=== PATIENT | female | born 1940 | race Caucasian/White ===

== ENCOUNTER 2017-04-28 20:36 | Inpatient (IN) | payer OTHER ==
[~2017-04-28] VITALS: Ht 157.5 cm; Wt 59.3 kg
[2017-04-28] MEDS ORDERED: HYDR25TA PO (20:49)
[2017-04-28] MEDS ORDERED: LOSA50TA37 PO (20:49)
[2017-04-28] MEDS ORDERED: METOPROLOL TARTRATE 5 MG/5 ML VIAL IVP ONE (21:45)
[2017-04-28 21:48] LABS: BASOPHILS % (AUTO) 0.5 % (0.0-2.0); EOSINOPHILS % (AUTO) 0.3 % (1.0-6.0); HEMATOCRIT 37.8 % (36-46); HEMOGLOBIN 13.4 g/dL (12.0-16.0); LYMPHOCYTES # (AUTO) 2.2 K/uL (1.0-4.8); LYMPHOCYTES % (AUTO) 26.6 % (22.0-44.0); MEAN CORPUSCULAR HEMOGLOBIN 30.4 pg (26.0-34.0); MEAN CORPUSCULAR HGB CONC 35.3 G/dL (31.0-37.0); MEAN CORPUSCULAR VOLUME 86 fL (80-100); MONOCYTES # (AUTO) 0.5 K/uL (0.1-1.0); MONOCYTES % (AUTO) 6.6 % (2.0-9.0); NEUTROPHILS # (AUTO) 5.5 K/uL (1.8-7.7); PLATELET COUNT (AUTO) 614 K/uL (150-450); RED BLOOD CELL COUNT(AUTO) 4.39 MIL/uL (4.00-5.20); RED CELL DISTRIBUTION WIDTH 12.1 % (11.5-14.5)
[2017-04-28 21:50] LABS: APPEARANCE,URINE CLEAR (CLEAR); BILIRUBIN,URINE NEGATIVE (NEGATIVE); GLUCOSE, URINE (UA) NEGATIVE (NEGATIVE); KETONES,URINE NEGATIVE (NEGATIVE); LEUKOCYTE ESTERASE ,URINE NEGATIVE (NEGATIVE); NITRATE,URINE NEGATIVE (NEGATIVE); OCCULT BLOOD,URINE LARGE (NEGATIVE); PROTEIN,URINE NEGATIVE (NEGATIVE); UROBILINOGEN,URINE 0.2 mg/dL (<=1.0)
[2017-04-28 21:55] LABS: BACTERIA,URINE None Seen /HPF (None Seen); RBC,URINE 26-50 /HPF (0-2); SQUAMOUS EPITHELIAL CELL,UR Few /LPF (None Seen); WBC,URINE 0-2 /HPF (0-5)
[2017-04-28 21:59] LABS: ALANINE AMINOTRANSFERASE 23 U/L (12-78); ALBUMIN 4.1 g/dL (3.4-5.0); ALKALINE PHOSPHATASE 64 U/L (46-116); ANION GAP 11 mmol/L (8-16); ASPARTATE AMINOTRANSFERASE 28 U/L (15-37); CALCIUM, TOTAL 8.9 mg/dL (8.8-10.5); CARBON DIOXIDE 25 mmol/L (22-29); CHLORIDE 84 mmol/L (98-107); CREATININE 0.71 mg/dL (0.60-1.30); GLOMERULAR FILTR. RATE CALC > 60 mL/min (>60); GLUCOSE,RANDOM 153 mg/dL (70-110); LIPASE 112 U/L (73-393); TOTAL PROTEIN, SERUM 8.1 g/dL (6.4-8.2); UREA NITROGEN, BLOOD 9 mg/dL (7-18)
[2017-04-28 22:08] LABS: SODIUM SERUM 120 mmol/L (136-145)
[2017-04-28 22:09] LABS: POTASSIUM 2.7 mmol/L (3.5-5.1)
[2017-04-28] MEDS ORDERED: IOVERSOL 320 MG/ML 100 ML VIAL ONE (22:33)
[2017-04-28] MEDS ORDERED: POTASSIUM CHLORIDE 20 MEQ ER TABLET PO ONE (23:45)
[2017-04-29] MEDS ORDERED: ACETAMINOPHEN 325 MG TABLET PO PRN
[2017-04-29] MEDS ORDERED: ONDANSETRON HCL 4 MG/2 ML VIAL IVP PRN
[2017-04-29] MEDS ORDERED: LORazepam 0.5 MG TABLET PO ONE
[2017-04-29] MEDS ORDERED: 0.9% SODIUM CHLORIDE 10 ML SYRINGE IVP PRN
[2017-04-29 01:02] VITALS: BP 169/94
[2017-04-29] MEDS ORDERED: HYDROCODONE/ACETAMINOPHEN 5-325 MG TABLET PO PRN (03:00)
[2017-04-29 03:13] VITALS: BP 134/74
[2017-04-29] MEDS ORDERED: CARVEDILOL 6.25 MG TABLET PO ONE (03:15)
[2017-04-29] MEDS ORDERED: DEXTROSE 50%-WATER 25 GM/50 ML SYRINGE IVP PRN (03:15)
[2017-04-29] MEDS ORDERED: HydrALAZINE HCL 20 MG/ML VIAL IVP PRN (03:15)
[2017-04-29] MEDS ORDERED: POTASSIUM CHLORIDE 20 MEQ ER TABLET PO PRN (05:00)
[2017-04-29] MEDS ORDERED: POTASSIUM CHLORIDE 20 MEQ ER TABLET PO ONE (05:00)
[2017-04-29] MEDS ORDERED: POTASSIUM CHL 10 MEQ/WATER 50 ML IV PRN (05:00)
[2017-04-29] MEDS ORDERED: PNEUMOCOCCAL VACCINE POLYVALENT 0.5 ML VIAL [PPSV23] IM ONE (05:15)
[2017-04-29] MEDS: INSULIN ASPART 100 UNITS/ML SQ PRN ×2 (06:16→12:00)
[2017-04-29 06:26] LABS: ALANINE AMINOTRANSFERASE 24 U/L (12-78); ALBUMIN 3.7 g/dL (3.4-5.0); ALKALINE PHOSPHATASE 62 U/L (46-116); ANION GAP 9 mmol/L (8-16); ASPARTATE AMINOTRANSFERASE 30 U/L (15-37); BILIRUBIN,TOTAL 1.1 mg/dL (0.1-1.0); CALCIUM, TOTAL 8.5 mg/dL (8.8-10.5); CARBON DIOXIDE 27 mmol/L (22-29); CHLORIDE 86 mmol/L (98-107); CREATININE 0.71 mg/dL (0.60-1.30); GLOMERULAR FILTR. RATE CALC > 60 mL/min (>60); GLUCOSE,RANDOM 128 mg/dL (70-110); TOTAL PROTEIN, SERUM 7.6 g/dL (6.4-8.2); UREA NITROGEN, BLOOD 11 mg/dL (7-18)
[2017-04-29 06:28] LABS: BASOPHILS % (AUTO) 0.2 % (0.0-2.0); EOSINOPHILS % (AUTO) 0.7 % (1.0-6.0); HEMATOCRIT 36.9 % (36-46); HEMOGLOBIN 13.3 g/dL (12.0-16.0); LYMPHOCYTES % (AUTO) 23.4 % (22.0-44.0); MEAN CORPUSCULAR HEMOGLOBIN 30.8 pg (26.0-34.0); MEAN CORPUSCULAR VOLUME 86 fL (80-100); MONOCYTES # (AUTO) 0.8 K/uL (0.1-1.0); MONOCYTES % (AUTO) 9.2 % (2.0-9.0); NEUTROPHILS # (AUTO) 5.8 K/uL (1.8-7.7); NEUTROPHILS % (AUTO) 66.5 % (40.0-70.0); PLATELET COUNT (AUTO) 658 K/uL (150-450); RED BLOOD CELL COUNT(AUTO) 4.32 MIL/uL (4.00-5.20); RED CELL DISTRIBUTION WIDTH 12.7 % (11.5-14.5)
[2017-04-29 07:02] LABS: SODIUM SERUM 122 mmol/L (136-145)
[2017-04-29 07:06] LABS: HEMOGLOBIN A1C 6.8 % (4.5-6.2)
[2017-04-29 07:22] LABS: CHOL/HDL RATIO 2.5 (3.9-5.7); CHOLESTEROL 172 mg/dL (131-200); FREE T4 (FREE THYROXINE) 1.02 ng/dL (0.76-1.46); HDL CHOLESTEROL 68 mg/dL (40-60); LDL CHOL (CALC.) 96 mg/dL (0-130); THYROID STIMULATING HORMONE 2.86 uIU/mL (0.36-3.74); TRIGLYCERIDES 42 mg/dL (15-150)
[2017-04-29 08:11] VITALS: BP 114/60
[2017-04-29 08:28] LABS: GLUCOMETER DEV NAME(LOC) PVLAB129; GLUCOSE,POINT OF CARE 159 MG/DL (70-110)
[2017-04-29] MEDS: ATORVASTATIN CALCIUM 10 MG TABLET PO SCH (09:03)
[2017-04-29] MEDS: ASPIRIN 81 MG EC TABLET PO SCH (09:03)
[2017-04-29] MEDS: POTASSIUM CHL 20 MEQ/0.9% NS 1,000 ML IV SCH (09:43)
[2017-04-29 11:01] VITALS: BP 112/54
[2017-04-29 12:58] LABS: MAGNESIUM 1.7 mg/dL (1.80-2.40)
[2017-04-29 15:43] VITALS: BP 109/50
[2017-04-29 19:48] VITALS: BP 104/52
[2017-04-29] MEDS: CARVEDILOL 6.25 MG TABLET PO SCH (21:00)
[2017-04-30 00:14] VITALS: BP 93/53
[2017-04-30 05:03] VITALS: BP 97/52
[2017-04-30] MEDS: POTASSIUM CHL 20 MEQ/0.9% NS 1,000 ML IV SCH (07:30)
[2017-04-30 07:42] VITALS: BP 93/49
[2017-04-30] MEDS: ATORVASTATIN CALCIUM 10 MG TABLET PO SCH (08:18)
[2017-04-30] MEDS: ASPIRIN 81 MG EC TABLET PO SCH (08:18)
[2017-04-30] MEDS: CARVEDILOL 6.25 MG TABLET PO SCH (08:25)
[2017-04-30 09:03] LABS: GLUCOMETER DEV NAME(LOC) PVLAB129; GLUCOSE,POINT OF CARE 123 MG/DL (70-110)
[2017-04-30 09:03] LABS: GLUCOMETER DEV NAME(LOC) PVLAB129; GLUCOSE,POINT OF CARE 136 MG/DL (70-110)
[2017-04-30 09:03] LABS: GLUCOMETER DEV NAME(LOC) PVLAB129; GLUCOSE,POINT OF CARE 133 MG/DL (70-110)
[2017-04-30 11:11] VITALS: BP 100/53
[2017-05-01 05:43] LABS: GLUCOMETER DEV NAME(LOC) 5N 2R; GLUCOSE,POINT OF CARE 166 MG/DL (70-110)
[2017-05-01 05:43] LABS: GLUCOMETER DEV NAME(LOC) 5N 2R; GLUCOSE,POINT OF CARE 102 MG/DL (70-110)
== END 2017-04-30 14:55 | disposition home or self-care (01) | DRG 699 ==
LOC: EDBD 20:38 → EMS 20:38 → 5N 04-29 00:01
PROVIDERS: ADMIT Hospitalist; ATTEND Hospitalist
DX: T83.83XA Hemorrhage due to genitourinary prosthetic devices, implants and grafts, initial encounter (principal); I16.1 Hypertensive emergency; E87.1 Hypo-osmolality and hyponatremia; K76.0 Fatty (change of) liver, not elsewhere classified; R31.29 Other microscopic hematuria; I42.2 Other hypertrophic cardiomyopathy; R74.8 Abnormal levels of other serum enzymes; I10 Essential (primary) hypertension; E87.6 Hypokalemia; K80.20 Calculus of gallbladder without cholecystitis without obstruction; K44.9 Diaphragmatic hernia without obstruction or gangrene; Z82.49 Family history of ischemic heart disease and other diseases of the circulatory system; Z83.3 Family history of diabetes mellitus; Z79.899 Other long term (current) drug therapy; Y84.6 Urinary catheterization as the cause of abnormal reaction of the patient, or of later complication, without mention of misadventure at the time of the procedure; Y92.89 Other specified places as the place of occurrence of the external cause
CPT/HCPCS: 70450; 74177; 82962; 83036; 83735; 83935; 84132; 84295; 84300; 84439; 84443; 93005; 93306; J3480; J3490

== ENCOUNTER 2022-02-15 11:12 | Emergency (ER) | payer OTHER ==
[~2022-02-15] VITALS: Ht 152.4 cm; Wt 61.4 kg
[~2022-02-15 11:12] MED LIST: HYDR25TA2 PO; LOSA-382 PO
[2022-02-15] MEDS ORDERED: CETI-450 PO (11:25)
[2022-02-15] MEDS ORDERED: ATOR20TA86 PO (11:25)
[2022-02-15] MEDS ORDERED: ACET-66 PO (11:25)
[2022-02-15] MEDS ORDERED: METF-1211 PO (11:25)
[2022-02-15] MEDS ORDERED: CHOL500043 PO (11:25)
[2022-02-15] MEDS ORDERED: OMEP20 PO (11:25)
[2022-02-15] MEDS ORDERED: ASPI-1450 PO (11:25)
[2022-02-15] MEDS ORDERED: ASCO500 PO (11:25)
[2022-02-15] MEDS ORDERED: AMLO-258 PO (11:25)
[2022-02-15] MEDS ORDERED: DICL100G31 TP (11:59)
[2022-02-15] MEDS ORDERED: ASPI-1444 PO (11:59)
[2022-02-15] MEDS ORDERED: CHOL25TA4 PO (11:59)
[2022-02-15] MEDS ORDERED: POLY30DR OU (11:59)
[2022-02-15] MEDS ORDERED: HYDR25TA PO (11:59)
[2022-02-15] MEDS ORDERED: IBUPROFEN 600 MG TABLET PO ONE (12:00)
[2022-02-15 12:09] LABS: BASOPHILS % (AUTO) 1.3 % (0.0-2.0); EOSINOPHILS % (AUTO) 1.8 % (1.0-6.0); LYMPHOCYTES % (AUTO) 33.7 % (22.0-44.0); MEAN CORPUSCULAR HEMOGLOBIN 30.2 pg (26.0-34.0); MEAN CORPUSCULAR HGB CONC 33.3 G/dL (31.0-37.0); MEAN CORPUSCULAR VOLUME 91 fL (80-100); MONOCYTES # (AUTO) 0.5 K/uL (0.1-1.0); MONOCYTES % (AUTO) 8.3 % (2.0-9.0); NEUTROPHILS # (AUTO) 3.3 K/uL (1.8-7.7); NEUTROPHILS % (AUTO) 54.9 % (40.0-70.0); PLATELET COUNT (AUTO) 539 K/uL (150-450); RED BLOOD CELL COUNT(AUTO) 3.97 MIL/uL (4.00-5.20)
[2022-02-15 12:21] LABS: ANION GAP 6 mmol/L (8-16); CALCIUM, TOTAL 9.1 mg/dL (8.8-10.5); CARBON DIOXIDE 28 mmol/L (22-29); CHLORIDE 102 mmol/L (98-107); CREATININE 0.73 mg/dL (0.60-1.30); GLUCOSE,RANDOM 111 mg/dL (70-110); POTASSIUM 4.2 mmol/L (3.5-5.1); SODIUM SERUM 136 mmol/L (136-145); UREA NITROGEN, BLOOD 16 mg/dL (7-18)
[2022-02-15 12:22] LABS: GLOMERULAR FILTR. RATE CALC > 60 mL/min (>60)
[2022-02-15 12:55] LABS: APPEARANCE,URINE CLEAR (CLEAR); BILIRUBIN,URINE NEGATIVE (NEGATIVE); GLUCOSE, URINE (UA) NEGATIVE (NEGATIVE); KETONES,URINE NEGATIVE (NEGATIVE); LEUKOCYTE ESTERASE ,URINE NEGATIVE (NEGATIVE); NITRATE,URINE NEGATIVE (NEGATIVE); OCCULT BLOOD,URINE MODERATE (NEGATIVE); PROTEIN,URINE TRACE mg/dL (NEGATIVE); SPECIFIC GRAVITIY, URINE 1.015 (1.003-1.030)
[2022-02-15 13:01] LABS: RBC,URINE 26-50 /HPF (0-2); WBC,URINE 0-2 /HPF (0-5)
[2022-02-15 13:02] LABS: BACTERIA,URINE None Seen /HPF (None Seen); SQUAMOUS EPITHELIAL CELL,UR Few /LPF (None Seen)
[2022-02-15] MEDS ORDERED: NITR-75 PO ×2 (14:44→15:04)
[2022-02-15] MEDS ORDERED: IBUP-2070 PO ×2 (14:44→15:04)
[2022-02-15 15:24] VITALS: BP 143/78
== END 2022-02-15 15:24 | disposition home or self-care (01) ==
LOC: EMS 11:30
DX: R31.9 Hematuria, unspecified (principal); E11.9 Type 2 diabetes mellitus without complications; I10 Essential (primary) hypertension
CPT/HCPCS: 74176; 80048; 81001; 85025; 99284

== ENCOUNTER 2023-11-19 08:46 | Inpatient (IN) | payer OTHER ==
[~2023-11-19] VITALS: Ht 157.5 cm; Wt 53.4 kg
[~2023-11-19 08:46] MED LIST changes: +AMLO-258 PO; +ASPI-1444 PO; +ATOR20TA PO; +CHOL25TA4 PO; -HYDR25TA2 PO; -LOSA-382 PO; +METF-1211 PO; +PANT-31 PO
[2023-11-19 09:31] LABS: GLUCOMETER DEV NAME(LOC) ER.7; GLUCOSE,POINT OF CARE 90 MG/DL (70-110)
[2023-11-19 09:32] LABS: EOSINOPHILS % (AUTO) 3.3 % (1.0-6.0); HEMATOCRIT 32.5 % (36-46); HEMOGLOBIN 10.6 g/dL (12.0-16.0); LYMPHOCYTES # (AUTO) 1.6 K/uL (1.0-4.8); LYMPHOCYTES % (AUTO) 26.4 % (22.0-44.0); MEAN CORPUSCULAR HEMOGLOBIN 27.3 pg (26.0-34.0); MEAN CORPUSCULAR HGB CONC 32.7 G/dL (31.0-37.0); MEAN CORPUSCULAR VOLUME 84 fL (80-100); MONOCYTES # (AUTO) 0.6 K/uL (0.1-1.0); MONOCYTES % (AUTO) 9.3 % (2.0-9.0); NEUTROPHILS # (AUTO) 3.7 K/uL (1.8-7.7); PLATELET COUNT (AUTO) 585 K/uL (150-450); RED BLOOD CELL COUNT(AUTO) 3.88 MIL/uL (4.00-5.20); RED CELL DISTRIBUTION WIDTH 15.2 % (11.5-14.5); WHITE BLOOD COUNT (AUTO) 6.2 K/uL (4.5-11.0)
[2023-11-19 09:45] LABS: ANION GAP 7 mmol/L (8-16); CALCIUM, TOTAL 8.9 mg/dL (8.8-10.5); CARBON DIOXIDE 27 mmol/L (22-29); CHLORIDE 104 mmol/L (98-107); CREATININE 0.74 mg/dL (0.60-1.30); GLOMERULAR FILTR. RATE CALC > 60 mL/min (>60); GLUCOSE,RANDOM 95 mg/dL (70-110); POTASSIUM 4.2 mmol/L (3.5-5.1); SODIUM SERUM 138 mmol/L (136-145); UREA NITROGEN, BLOOD 10 mg/dL (7-18)
[2023-11-19 09:46] LABS: INR 0.9 (0.9-1.1); PROTHROMBIN TIME 9.8 SEC (9.4-11.6)
[2023-11-19 09:49] LABS: TROPONIN I-HIGH SENSITIVITY 12 ng/L (<51)
[2023-11-19 10:10] LABS: ALANINE AMINOTRANSFERASE 26 U/L (12-78); ALBUMIN 3.4 g/dL (3.4-5.0); ALKALINE PHOSPHATASE 80 U/L (46-116); ASPARTATE AMINOTRANSFERASE 27 U/L (15-37); BILIRUBIN,TOTAL 0.4 mg/dL (0.1-1.0); CREATINE KINASE, TOTAL ONLY 215 U/L (26-192); TOTAL PROTEIN, SERUM 7.4 g/dL (6.4-8.2)
[2023-11-19 10:25] LABS: B-TYPE NATRIURETIC PEPTIDE 138 pg/mL (0-100)
[2023-11-19 11:02] LABS: APPEARANCE,URINE CLEAR (CLEAR); BILIRUBIN,URINE NEGATIVE (NEGATIVE); COLOR,URINE COLORLESS (YELLOW); GLUCOSE, URINE (UA) NEGATIVE (NEGATIVE); KETONES,URINE NEGATIVE (NEGATIVE); LEUKOCYTE ESTERASE ,URINE NEGATIVE (NEGATIVE); NITRATE,URINE NEGATIVE (NEGATIVE); OCCULT BLOOD,URINE SMALL (NEGATIVE); PH,URINE 6.5 (5.0-8.0); PROTEIN,URINE NEGATIVE (NEGATIVE); SPECIFIC GRAVITIY, URINE 1.003 (1.003-1.030); UROBILINOGEN,URINE <=1.0 mg/dL (<=1.0)
[2023-11-19 11:12] LABS: BACTERIA,URINE None Seen /HPF (None Seen); RBC,URINE 0-2 /HPF (0-2); SQUAMOUS EPITHELIAL CELL,UR Rare /LPF (None Seen); WBC,URINE None Seen /HPF (0-5)
[2023-11-19] MEDS ORDERED: MAGNESIUM HYDROXIDE SUSPENSION 30 ML UDCUP PO PRN (13:15)
[2023-11-19] MEDS ORDERED: CARB15DR OU (13:15)
[2023-11-19] MEDS ORDERED: LOSA100T59 PO (13:15)
[2023-11-19] MEDS ORDERED: HYDR25TA PO (13:15)
[2023-11-19] MEDS ORDERED: DEXTROSE 50%-WATER 25 GM/50 ML SYRINGE IVP PRN (13:15)
[2023-11-19] MEDS ORDERED: OMEG10005 PO (13:15)
[2023-11-19] MEDS ORDERED: DICL100G61 TP (13:15)
[2023-11-19 14:51] LABS: TROPONIN I-HIGH SENSITIVITY 19 ng/L (<51)
[2023-11-19] MEDS: HEPARIN SODIUM,PORCINE 5,000 UNITS/ML VIAL SQ SCH (15:58)
[2023-11-19 19:57] VITALS: BP 154/81; PULSE 73; RESP 19; TEMP 97.6; O2SAT 97
[2023-11-19] MEDS: FAMOTIDINE 20 MG TABLET PO SCH (21:50)
[2023-11-19] MEDS: INSULIN LISPRO 100 UNITS/ML SQ PRN (21:53)
[2023-11-19 23:41] LABS: GLUCOMETER DEV NAME(LOC) 5S.1C; GLUCOSE,POINT OF CARE 144 MG/DL (70-110)
[2023-11-20] VITALS (7 sets, daily range): BP systolic 128–172; BP diastolic 68–87; PULSE 67–75; RESP 16–20; TEMP 97.6–98.2; O2SAT 97–100
[2023-11-20] MEDS: ACETAMINOPHEN 325 MG TABLET PO PRN (00:16)
[2023-11-20] MEDS: ASPIRIN 81 MG CHEWABLE TABLET PO SCH (08:30)
[2023-11-20] MEDS: ATORVASTATIN CALCIUM 20 MG TABLET PO SCH (08:31)
[2023-11-20] MEDS ORDERED: ACET-3385 PO (10:54)
[2023-11-20] MEDS: LOSARTAN POTASSIUM 50 MG TABLET PO SCH (11:13)
[2023-11-20] MEDS: HYDROCHLOROTHIAZIDE 25 MG TABLET PO SCH (11:13)
[2023-11-20 12:38] LABS: TROPONIN I-HIGH SENSITIVITY 22 ng/L (<51)
[2023-11-20] MEDS: AmLODIPine BESYLATE 10 MG TABLET PO SCH (14:33)
[2023-11-20] MEDS: MetFORMIN HCL 500 MG TABLET PO SCH (18:01)
[2023-11-20 20:26] LABS: GLUCOMETER DEV NAME(LOC) 5S.1C; GLUCOSE,POINT OF CARE 121 MG/DL (70-110)
[2023-11-20 20:26] LABS: GLUCOMETER DEV NAME(LOC) 5S.1C; GLUCOSE,POINT OF CARE 98 MG/DL (70-110)
== END 2023-11-20 18:20 | disposition home or self-care (01) | DRG 206 ==
LOC: EMS 08:46 → EDH 13:11 → 5S 18:34
PROVIDERS: ADMIT Internal Medicine; ATTEND Internal Medicine
DX: M94.0 Chondrocostal junction syndrome [Tietze] (principal); I10 Essential (primary) hypertension; E11.9 Type 2 diabetes mellitus without complications; E78.5 Hyperlipidemia, unspecified; G89.29 Other chronic pain; K21.9 Gastro-esophageal reflux disease without esophagitis; Z82.49 Family history of ischemic heart disease and other diseases of the circulatory system; Z83.3 Family history of diabetes mellitus
CPT/HCPCS: 71045; 80053; 81001; 82550; 82962; 83880; 84484; 85025; 85610; 85730; 93005; 99285; J1644; 36415-L1; 36415-TC

== ENCOUNTER 2024-04-27 08:28 | Emergency (ER) | payer OTHER ==
[~2024-04-27] VITALS: Ht 157.5 cm; Wt 56.8 kg
[~2024-04-27 08:28] MED LIST changes: +ACET-3385 PO; +CARB15DR OU; +DICL100G61 TP; +HYDR25TA PO; +LOSA100T59 PO; +OMEG100014 PO
[2024-04-27 08:35] VITALS: TEMP 98.1
[2024-04-27 09:38] LABS: BASOPHILS % (AUTO) 1.8 % (0.0-2.0); EOSINOPHILS % (AUTO) 1.8 % (1.0-6.0); HEMATOCRIT 33.3 % (36-46); HEMOGLOBIN 11.3 g/dL (12.0-16.0); LYMPHOCYTES # (AUTO) 1.4 K/uL (1.0-4.8); LYMPHOCYTES % (AUTO) 32.7 % (22.0-44.0); MEAN CORPUSCULAR HEMOGLOBIN 29.8 pg (26.0-34.0); MEAN CORPUSCULAR VOLUME 88 fL (80-100); MONOCYTES # (AUTO) 0.3 K/uL (0.1-1.0); MONOCYTES % (AUTO) 7.6 % (2.0-9.0); NEUTROPHILS # (AUTO) 2.5 K/uL (1.8-7.7); NEUTROPHILS % (AUTO) 56.1 % (40.0-70.0); PLATELET COUNT (AUTO) 701 K/uL (150-450); RED CELL DISTRIBUTION WIDTH 14.7 % (11.5-14.5); WHITE BLOOD COUNT (AUTO) 4.4 K/uL (4.5-11.0)
[2024-04-27 09:48] LABS: ANION GAP 6 mmol/L (8-16); CALCIUM, TOTAL 8.6 mg/dL (8.8-10.5); CARBON DIOXIDE 27 mmol/L (22-29); CHLORIDE 97 mmol/L (98-107); CREATININE 0.73 mg/dL (0.60-1.30); GLOMERULAR FILTR. RATE CALC > 60 mL/min (>60); GLUCOSE,RANDOM 124 mg/dL (70-110); SODIUM SERUM 130 mmol/L (136-145); UREA NITROGEN, BLOOD 6 mg/dL (7-18)
[2024-04-27 10:25] VITALS: BP 158/65; PULSE 72; RESP 16; O2SAT 98
== END 2024-04-27 10:27 | disposition home or self-care (01) ==
LOC: EMS 08:31
DX: K62.5 Hemorrhage of anus and rectum (principal); E11.9 Type 2 diabetes mellitus without complications; I10 Essential (primary) hypertension; E78.00 Pure hypercholesterolemia, unspecified; K21.9 Gastro-esophageal reflux disease without esophagitis; Z79.82 Long term (current) use of aspirin; Z87.19 Personal history of other diseases of the digestive system; Z79.899 Other long term (current) drug therapy
CPT/HCPCS: 80048; 85025; 99283

== ENCOUNTER 2025-03-15 16:59 | Emergency (ER) | payer OTHER ==
[~2025-03-15] VITALS: Ht 162.6 cm; Wt 58.6 kg
[2025-03-15 17:15] VITALS: TEMP 98.2
[2025-03-15 17:35] LABS: GLUCOMETER DEV NAME(LOC) ER.7; GLUCOSE,POINT OF CARE 108 MG/DL (70-110)
[2025-03-15] MEDS ORDERED: LEVO5TAB29 PO (17:47)
[2025-03-15] MEDS ORDERED: CHOL400T56 PO (17:47)
[2025-03-15] MEDS ORDERED: OMEG-125 PO (17:47)
[2025-03-15] MEDS ORDERED: RIFA300C63 PO (17:47)
[2025-03-15] MEDS ORDERED: ISON300T90 PO (17:47)
[2025-03-15] MEDS ORDERED: CARB50DR OU (17:47)
[2025-03-15] MEDS ORDERED: ICOS1CAP PO (17:47)
[2025-03-15] MEDS ORDERED: FAMO20 PO (17:47)
[2025-03-15] MEDS ORDERED: PYRI-9 PO (17:47)
[2025-03-15] MEDS ORDERED: ASCO500 PO (17:47)
[2025-03-15 18:09] LABS: PLATELET COUNT (AUTO) 560 K/uL (150-450); RED BLOOD CELL COUNT(AUTO) 4.09 MIL/uL (4.00-5.20); RED CELL DISTRIBUTION WIDTH 13.1 % (11.5-14.5); WHITE BLOOD COUNT (AUTO) 5.5 K/uL (4.5-11.0)
[2025-03-15 18:21] LABS: CALCIUM, TOTAL 9.1 mg/dL (8.8-10.5); CREATININE 0.90 mg/dL (0.60-1.30); GLOMERULAR FILTR. RATE CALC 60 mL/min (>60); GLUCOSE,RANDOM 112 mg/dL (70-110); SODIUM SERUM 133 mmol/L (136-145); UREA NITROGEN, BLOOD 20 mg/dL (7-18)
[2025-03-15 18:31] LABS: TROPONIN I-HIGH SENSITIVITY 35 ng/L (<51)
[2025-03-15 23:26] VITALS: BP 124/71; PULSE 82; RESP 18; O2SAT 98
== END 2025-03-15 23:49 | disposition home or self-care (01) ==
LOC: EMS 17:12
DX: I10 Essential (primary) hypertension (principal); E11.9 Type 2 diabetes mellitus without complications; E78.00 Pure hypercholesterolemia, unspecified; K21.9 Gastro-esophageal reflux disease without esophagitis; Z79.82 Long term (current) use of aspirin; Z79.899 Other long term (current) drug therapy
CPT/HCPCS: 71045; 80048; 82962; 84484; 85025; 93005; 99285; 36415-L1; 36415-TC